=== PATIENT | female | born 1970 | race Caucasian/White ===

== ENCOUNTER 2021-04-08 18:43 | Emergency (ER) | payer BC ==
[2021-04-08 18:55] VITALS: BP 166/72; PULSE 83; TEMP 98.8; BMI 52.6
[2021-04-08] MEDS ORDERED: ACETAMINOPHEN/CAFFEINE/BUTALBITAL 1 TAB PO ONE (20:31)
[2021-04-08] MEDS ORDERED: ACETAMINOPHEN/CAFFEINE/BUTALBITAL 1 TAB ONE (20:48)
== END 2021-04-08 21:56 | disposition home or self-care (01) ==
LOC: JER 18:43 → JERFT 18:43
DX: G44.029 Chronic cluster headache, not intractable (principal)
CPT/HCPCS: 99283-25

== ENCOUNTER 2021-05-08 11:01 | Emergency (ER) | payer BC ==
[2021-05-08 11:10] VITALS: BMI 52.4
[2021-05-08] MEDS ORDERED: SUMAtriptan SUCCINATE 25 MG TABLET PO ONE (11:49)
[2021-05-08] MEDS ORDERED: SUMAtriptan SUCCINATE 50 MG TABLET ONE (11:55)
[2021-05-08] MEDS ORDERED: TETRACAINE 0.5% HCL 0.6ML DROPPER.BOTTLE OD ONE (13:47)
[2021-05-08] MEDS ORDERED: FLUORESCEIN NA 1 EA STRIP OD ONE (13:47)
[2021-05-08] MEDS ORDERED: TETRACAINE 0.5% OPHTH SOLN 2 ML BOTTLE ONE (13:49)
[2021-05-08] MEDS ORDERED: FLUORESCEIN NA 1 EA STRIP ONE (13:49)
[2021-05-08 14:01] LABS: BASO % 1.5 % (0-2.0); EOS % 1.9 % (0-4.5); HEMATOCRIT 34.2 % (32.4-45.2); HEMOGLOBIN 11.3 GM/dL (10.7-15.3); LYMPH % 17.7 % (8-40); MCH 29.4 pg (25.7-33.7); MCHC 33.1 g/dl (32.0-36.0); MEAN CELL VOLUME 88.9 fl (80-96); MEAN PLT VOLUME 6.7 fl (7.5-11.1); NEUT % 73.9 % (42.8-82.8); PLATELET COUNT 420 10^3/uL (134-434); RBC 3.84 M/mm3 (3.60-5.2); WHITE BLOOD COUNT 11.8 K/mm3 (4.0-10.0)
[2021-05-08 14:22] LABS: CHLORIDE 104 mmol/L (98-107); SODIUM 135 mmol/L (136-145)
[2021-05-08 14:24] LABS: ALBUMIN 2.7 g/dl (3.4-5.0); BLOOD UREA NITROGEN 11.7 mg/dL (7-18); CO2 27 mmol/L (21-32)
[2021-05-08 14:25] LABS: GLUCOSE,RANDOM 99 mg/dL (74-106)
[2021-05-08 14:28] LABS: CREATININE 0.8 mg/dL (0.55-1.3); SGOT/AST 60 U/L (15-37); SGPT/ALT 27 U/L (13-61)
[2021-05-08 14:29] LABS: BILIRUBIN,TOTAL 0.4 mg/dL (0.2-1); TOT PROT 7.4 g/dl (6.4-8.2)
[2021-05-08 14:30] LABS: ALK PHOS 85 U/L (45-117)
[2021-05-08 14:32] LABS: ANION GAP 5 MMOL/L (8-16)
[2021-05-08 15:03] LABS: ERYTHROCYTE SEDIMENTATION RATE 100 mm/hr (0-20)
[2021-05-08] MEDS ORDERED: predniSONE 20 MG TABLET (UD) PO ONE (15:21)
[2021-05-08] MEDS ORDERED: predniSONE 20 MG TABLET (UD) ONE (15:25)
[2021-05-08 15:46] VITALS: BP 138/76; PULSE 87; TEMP 98.5
[2021-05-08 16:07] LABS: CALCIUM 9.2 mg/dL (8.5-10.1)
[2021-05-08 16:08] LABS: ALBUMIN 2.9 g/dl (3.4-5.0); BLOOD UREA NITROGEN 11.6 mg/dL (7-18)
[2021-05-08 16:11] LABS: CREATININE 0.7 mg/dL (0.55-1.3)
[2021-05-08 16:12] LABS: BILIRUBIN,TOTAL 0.2 mg/dL (0.2-1)
[2021-05-08 16:13] LABS: TOT PROT 7.1 g/dl (6.4-8.2)
== END 2021-05-08 15:44 | disposition home or self-care (01) ==
LOC: JER 11:01
DX: H05.221 Edema of right orbit (principal); G44.019 Episodic cluster headache, not intractable
CPT/HCPCS: 36415; 70450-TC; 80053; 85025; 85651; 86140; 99284-25